=== PATIENT | male | born 1990 ===

== ENCOUNTER → 2019-12-17 | Outpatient (CLI) | payer OTHER ==
[2019-12-17 10:33] VITALS: BP 159/87
--- NOTE | 2019-12-17 10:33 | ER RDC ASSESSMENT REPORT ---
Intake - In the Last 14 days Have you traveled outside [place]?: No Have you been in close contact with someone CONFIRMED: Yes Worked in Healthcare?: No - Symptoms Subjective Fever([place] feverish): No Chills: No Muscule Aches: No Runny Nose: No Sore Throat: No Cough (New or worsening chronic cough): No Shortness of breath: No Nausea or Vomiting: No Headache: No Abdominal Pain: No Diarrhea(3 or more loose stools in last 24 hours): No - Do you have any of the following Chronic lung disease: Asthma or emphysema or COPD: No Cystic Fibrosis: No Diabetes: No High Blood Pressure: No Cardiovascular Disease: No Chronic Kidney Disease: No Chronic Liver Disease: No Chronic blood disorder like Sickle Cell Disease: No Weak immune system due to disease or medication: No Neurologic condition that limits movement: No Developmental delay - Moderate to Severe: No Recent (within past 2 weeks) or current : No Morbid Obesity (>100 pounds over ideal weight): No - Objective Temperature: 98.2 F Pulse Rate: 95 Respiratory Rate: 18 Blood Pressure: 159/87 O2 Sat by Pulse Oximetry: 95 Objective: Patient is a well-appearing 29-year-old male, who presents today for COVID-19 screening. Disposition: Home; Selfcare General - General Stated Complaint: Covid-19 Screening Mode of Arrival: Ambulatory Information source: Patient Notes: The patient was evaluated during the global COVID-19 pandemic. That diagnosis was suspected/considered upon initial presentation. Their evaluation, treatment, and testing was consistent with current guidelines for patients who present with complaints or symptoms that may be related to COVID-19. Patient reports having close contact exposure to a COVID-19 lab confirmed posi tive individual. - HPI Patient complains to provider of: Asymptomatic, no other complaints Onset: Other - Asymptomatic Quality of pain: No pain Severity: None Pain Level: Denies Associated symptoms: None Exacerbated by: Denies Relieved by: Denies Similar symptoms previously: No Recently seen / treated by doctor: No Past Medical History - General Information source: Patient - Social History Smoking Status: Former Smoker Cigarette use (# per day): No - Quit smoking 1 year ago Chew tobacco use (# tins/day): No Smoking Education Provided: Yes Frequency of alcohol use: Occasional Drug Abuse: None Occupation: [employer] employee Lives with: Family Patient has suicidal ideation: No Patient has homicidal ideation: No Physical Exam - General General appearance: Appears well In distress: None Notes: PHYSICAL EXAMINATION: GENERAL: Well-appearing and in no acute distress. HEAD: Atraumatic, normocephalic. EYES: sclera anicteric, conjunctiva are normal. ENT: nares patent. Moist mucous membranes. NECK: Normal range of motion, supple without lymphadenopathy. LUNGS: CTAB and equal. No wheezes rales or rhonchi. HEART: Regular rate and rhythm without murmurs. EXTREMITIES: Normal range of motion, no pitting edema. No cyanosis. BACK: No midline or CVA tenderness. NEUROLOGICAL: Cranial nerves grossly intact. Normal speech. Normal gait. PSYCH: Normal mood, normal affect. SKIN: Warm, Dry, normal color and turgor, no obvious lesions or rash noted. Diagnostic Results Laboratory Results: Patient advised at this time they are considered a Person Under Investigation (PUI) for the COVID-19 Coronavirus. They have been made aware it is currently taking 5-7 days to receive their results, and The [facility] will call to advise them of a POSITIVE result, and an [facility] hourly team members will call to advise of a NEGATIVE result. Patient Education/Counseling Counseling/Education: Patient presents with upper respiratory symptoms worrisome for possible COVID- 19. Patient does not have symptoms worrisome as an emergency such as difficulty breathing, shortness of breath, chest pain, pressure, confusion or cyanosis. Patient appears suitable for discharge. Patient's vital signs are stable and patient is nontoxic in appearance. Good return precautions have been discussed with patient, patient verbalized understanding and is agreeable with discharge plan of care at this time. Patient provided COVID-19 discharge instructions to include: As a person under investigation for COVID-19, the [place] department of Health and Human Services, division of public health advises you to adhere to the following guidance until your test results are reported to you. If your test result is positive, you will receive additional information from your provider and your local health department at that time. Remain at home until you are cleared by the health provider or public health authorities. Keep a log of visitors to your home, notify any visitors to your home of your isolation status. If you plan to move to a new address or leave the [facility], notify the local health department in your County. Call your doctor or seek care if you have an urgent medical need. Before seeking medical care, call ahead to get instructions from the provider before arriving at the medical office clinic or hospital. Notify them that you are being tested for the virus that causes COVID-19 so that arrangements can be made, as necessary, to prevent transmission to others in the healthcare setting. Next, notify the local health department in your county. If a medical emergency arises and you need to call 911, inform dispatch and the first responders that you are being tested for the virus that causes COVID-19. Next, notify the local health department in your county. Patient provided education on smoking cessation and the harmful effects of smoking, especially in the presence of Co-morbid conditions such as Hypertension, Diabetes, and/or other chronic illnesses. Patient verbalized understanding of smoking cessation education, and the increased health benefits of quitting. Guidance for worsening S/SX: For worsening symptoms, patient has been advised to contact their Primary Care Provider, or go to the nearest Emergency Department. RDC Discharge - Discharge Clinical Impression: COVID-19 Screening URI (upper respiratory infection) Qualifiers: URI type: unspecified URI Qualified Code(s): J06.9 - Acute upper respiratory infection, unspecified Condition: Stable Disposition: Home; Selfcare
== END ==
LOC: RDC 09:26
PROVIDERS: ATTEND Nurse Practitioner Family
DX: Z20.828 Contact with and (suspected) exposure to other viral communicable diseases (principal); Z87.891 Personal history of nicotine dependence
CPT/HCPCS: 87635; C9803; 99201

== ENCOUNTER 2020-04-22 15:22 | Emergency (ER) | payer OTHER ==
[2020-04-22] MEDS ORDERED: KETOROLAC TROMETHAMINE INJ/PF 30 MG/1 ML SDV IV ONE (16:49)
--- NOTE | 2020-04-22 16:51 | ER Document Report ---
ED Medical Screen (RME) - General Chief Complaint: Abdominal Pain Stated Complaint: ABDOMINAL PAIN Time Seen by Provider: 04/22/20 16:43 Primary Care Provider: LOPEZ BELLO [Primary Care Provider] - Follow up as needed Notes: HPI: 29-year-old obese male presenting to the emergency department for evaluation of left chest pain and difficulty breathing. Patient was having intercourse with his significant other and felt like he was going to pass out. States this occurred several times. [place] a sharp pain up underneath the left ribs and anterior chest wall. Denies nausea vomiting. PHYSICAL EXAMINATION: There is tenderness along the lower edge of the left anterior lower rib cage region. No specific abdominal pain on palpation. Lung sounds are clear to auscultation regular rate and rhythm appears mildly uncomf ortable I have greeted and performed a rapid initial assessment of this patient. A comprehensive ED assessment and evaluation of the patient, analysis of test results and completion of medical decision making process will be conducted by an additional ED providers. Please note that clinical decision making for this patient was made during the 2019 pandemic of novel coronavirus which caused a significant strain on the healthcare system including at this particular facility. Criteria for admission discharge and level of care decisions as well as treatment decisions have necessarily changed Physical Exam - Vital signs Vitals: Temp Pulse Resp BP Pulse Ox 97.3 F 97 24 H 145/92 H 96 04/22/20 15:50 04/22/20 15:50 04/22/20 15:50 04/22/20 15:50 04/22/20 15:50 Course - Vital Signs Vital signs: Temp Pulse Resp BP Pulse Ox 97.3 F 97 24 H 145/92 H 96 04/22/20 15:50 04/22/20 15:50 04/22/20 15:50 04/22/20 15:50 04/22/20 15:50 Doctor's Discharge - Discharge Referrals: LOPEZ BELLO [Primary Care Provider] - Follow up as needed
[2020-04-22] MEDS ORDERED: KETOROLAC TROMETHAMINE 60 MG/2 ML SDV IM ONE (17:05)
--- NOTE | 2020-04-22 17:37 | RADIOLOGY REPORT (SQ) ---
EXAM DESCRIPTION: CHEST 2 VIEWS IMAGES COMPLETED DATE/TIME: 04/22/2020 5:20 pm REASON FOR STUDY: left ant chest pain COMPARISON: None. NUMBER OF VIEWS: Two view. TECHNIQUE: Frontal and lateral radiographic views of the chest acquired. LIMITATIONS: None. FINDINGS: LUNGS AND PLEURA: Low lung volumes. No opacities, masses or pneumothorax. No pleural eff usion. MEDIASTINUM AND HILAR STRUCTURES: No masses. No contour abnormalities. HEART AND VASCULAR STRUCTURES: Heart normal in size and contour. No evidence for failure. BONES: No acute findings. HARDWARE: None in the chest. OTHER: No other significant finding. IMPRESSION: LOW LUNG VOLUMES. NO SIGNIFICANT RADIOGRAPHIC FINDING IN THE CHEST. TECHNICAL DOCUMENTATION: JOB ID: [id number] 2010 [employer]- All Rights Reserved Reading location - IP/workstation name: [email or web address]
[2020-04-22 17:39] LABS: ABSOLUTE BASOPHILS # (AUTO) 0.1 10^3/uL (0.0-0.2); ABSOLUTE EOSINOPHILS # (AUTO) 0.3 10^3/uL (0.0-0.6); ABSOLUTE LYMPHOCYTES (AUTO) 2.5 10^3/uL (0.5-4.7); ABSOLUTE MONOCYTES (AUTO) 0.8 10^3/uL (0.1-1.4); ABSOLUTE NEUT (AUTO) 4.7 10^3/uL (1.7-8.2); BASOPHILS % (AUTO) 1.1 % (0-2); EOSINOPHILS % (AUTO) 4.1 % (0-6); HEMATOCRIT 41.8 % (37.9-51.0); LYMPHOCYTES % (AUTO) 29.4 % (13-45); MEAN CORPUSCULAR HEMOGLOBIN 27.2 pg (27.0-33.4); MEAN CORPUSCULAR HGB CONC 33.5 g/dL (32.0-36.0); MEAN CORPUSCULAR VOLUME 81 fl (80-97); PLATELET COUNT 374 10^3/uL (150-450); RED BLOOD COUNT 5.15 10^6/uL (4.35-5.55); RED CELL DISTRIBUTION WIDTH 13.7 % (11.5-14.0); SEGMENTED NEUTROPHILS % (AUTO) 55.4 % (42-78); TOTAL CELLS COUNTED % (AUTO) 100 %; WHITE BLOOD COUNT 8.5 10^3/uL (4.0-10.5)
[2020-04-22 17:58] LABS: ALBUMIN 4.3 g/dL (3.5-5.0); ALKALINE PHOSPHATASE 68 U/L (38-126); ASPARTATE AMINO TRANSFERASE 40 U/L (17-59); BILIRUBIN,DIRECT 0.2 mg/dL (0.0-0.4); BILIRUBIN,TOTAL 0.3 mg/dL (0.2-1.3); BLOOD UREA NITROGEN 16 mg/dL (7-20); CALCIUM 9.2 mg/dL (8.4-10.2); CHLORIDE 103 mmol/L (98-107); GLUCOSE 95 mg/dL (75-110); TOTAL PROTEIN 7.7 g/dL (6.3-8.2)
[2020-04-22 18:06] LABS: CARBON DIOXIDE 31 mmol/L (22-30); POTASSIUM 4.8 mmol/L (3.6-5.0)
[2020-04-22 18:10] LABS: ANION GAP 3 (5-19)
--- NOTE | 2020-04-22 19:13 | ER Document Report ---
ED General - General Chief Complaint: Abdominal Pain Stated Complaint: ABDOMINAL PAIN Time Seen by Provider: 04/22/20 16:43 Primary Care Provider: ACE,LOEPZ [Primary Care Provider] - Follow up as needed Mode of Arrival: Ambulatory Information source: Patient Notes: 29-year-old man presents to the emergency department history of left anterior chest wall pain and tenderness which began approximately 2 hours prior to coming to the emergency department. He was having sexual intercourse with his when he developed sudden pain and discomfort. He denies prior history of similar episodes. He states that it hurts to take a deep breath and he also has focal pain right side the left aspect of the sternum. - Related Data Allergies/Adverse Reactions: No Known Allergies Allergy (Unverified 04/22/20 18:54) Past Medical History - Social History Smoking Status: Unknown if Ever Smoked Family History: Reviewed & Not Pertinent Review of Systems - Review of Systems Notes: Constitutional: Negative for fever. HENT: Negative for sore throat. Eyes: Negative for visual changes. Cardiovascular: Negative for chest pain. Chest: + Chest wall pain Respiratory: Negative for shortness of breath. Gastrointestinal: Negative for abdominal pain, vomiting or diarrhea. Genitourinary: Negative for dysuria. Musculoskeletal: Negative for back pain. Skin: Negative for rash. Neurological: Negative for headaches, weakness or numbness. 10 point ROS negative except as marked above and in HPI. Physical Exam - Vital signs Vitals: Temp Pulse Resp BP Pulse Ox 97.3 F 97 24 H 145/92 H 96 04/22/20 15:50 04/22/20 15:50 04/22/20 15:50 04/22/20 15:50 04/22/20 15:50 - Notes Notes: PHYSICAL EXAMINATION: Physical Exam: General: Well-nourished well-developed 29-year-old male with a complaint of chest wall pain HEENT: NC/AT, pupils equal round and reactive to light, MM moist,nares clear, oropharynx clear, airway patent Neck: supple, no adenopathy, no masses. Good range of motion Lungs: clear, good air movement. Chest: Tenderness to palpation on the left lateral distal sternum and costal margin. CVS: Regular rate and rhythm no murmur gallop or rub Abdomen: Soft, active, nontender, no masses, no hepatosplenomegaly Ext: No edema, clubbing or cyanosis. Neuro: Alert and responsive, moving all 4 extremities on command, cranial nerves intact, no focal findings Skin: Intact no open lesions, no rash Course - Re-evaluation Re-evalutation: 04/22/20 20:12 Patient is given Toradol IM for pain with some improvement in his chest discomfort. As read essentially negative there is no pneumothorax and there is no obvious fracture. I explained this to the patient that he probably pulled the sternal costal ligamentous material and is going to be sore and uncomfortable for the next few days. You may use cold pack or warm compress area. Using ibuprofen for pain and follow-up as needed. Patient acknowledges understanding of this plan and is in agreement. - Vital Signs Vital signs: Temp Pulse Resp BP Pulse Ox 97.3 F 97 24 H 145/92 H 96 04/22/20 15:50 04/22/20 15:50 04/22/20 15:50 04/22/20 15:50 04/22/20 15:50 - Laboratory Results Result Diagrams: 04/22/20 17:13 04/22/20 17:13 Laboratory Results Interpreted: 04/22/20 17:13 Sodium 136.7 L Carbon Dioxide 31 H Anion Gap 3 L ALT 51 H Critical Laboratory Results Reviewed: No Critical Results - Radiology Results Radiology Results Interpreted: 04/22/20 20:14 Chest X-Ray 04/22/20 16:48 IMPRESSION: LOW LUNG VOLUMES. NO SIGNIFICANT RADIOGRAPHIC FINDING IN THE CHEST. Critical Radiology Results Reviewed: No Critical Results Discharge - Discharge Clinical Impression: Chest wall pain Condition: Good Disposition: HOME, SELF-CARE Instructions: Chest Wall Pain ([facility]) Additional Instructions: You were seen in the emergency department today with complaint of chest wall pain. This appears to be a musculoskeletal injury and not related to your heart or your lungs. You may use ibuprofen for pain, use a cold compress to the area of pain for the first 48 hours and then you may begin using heat and alternate with cold. If your symptoms are worsening or you have other concerns you may return to the emergency department for further evaluation and treatment HOME CARE INSTRUCTIONS & INFORMATION: Thank you for choosing us for your medical needs. We hope you're satisfied with the care you received. After you leave, you must properly care for your problem and, at the same time, observe its progress. Any condition can change. Some illnesses can change rapidly over hours or days. If your condition worsens, return to the Emergency Department or see your physician promptly. ABOUT YOUR X-RAYS AND EKG'S: If you had an EKG or X-rays taken, they have been read by the Emergency Physician. The X-rays and EKG's will also be read by a Radiologist or Sound Cutter within 24 hours. If discrepancies are noted, you will be notified by telephone. Please be certain the ED has a correct telephone number & address where you can be reached. Also, realize that some fractures or abnormalities do not show up on initial X-rays. If your symptoms continue, see your physician. ABOUT YOUR LABORATORY TEST: If you had laboratory tests, the results have been reviewed by the Emergency Physician. Some test results (for example cultures) may not be available for several days. You will be contacted if any test result shows you need additional treatment. Please be certain the ED has a correct telephone number and address where you can be reached. ABOUT YOUR MEDICATIONS: You will receive instructions on how to take your medicine on the prescription label you receive. Additional information may be provided by the Pharmacy. If you have questions afterwards, call the ED for clarification or further instructions. Some prescribed medications may cause drowsiness. Do not perform tasks such as driving a car or operating machinery without consulting your Pharmacist. If you feel you need a refill of pain medication, your condition will need re-evaluation. Please do not call for a refill of any medication. ABOUT YOUR SIGNATURE: Signature of this document acknowledges to followin. Understanding that you received emergency treatment and that you may be released before al medical problems are known or treated. Please be certain th e ED has a correct phone number & address where you can be reached. 2. Acknowledgement that you will arrange for follow-up care as recommended. 3. Authorization for the Emergency Physician to provide information to your follow-up Physician in order to maximize your care. AT ANY TIME, IF YOUR SYMPTOMS CHANGE SIGNIFICANTLY OR WORSEN OR YOU DEVELOP NEW SYMPTOMS, RETURN TO THE EMERGENCY DEPARTMENT IMMEDIATELY FOR RE-EVALUATION. OUR GOAL IS TO PROVIDE EXCELLENT MEDICAL CARE! WE HOPE THAT WE HAVE MET YOUR EXPECTATIONS DURING YOUR EMERGENCY DEPARTMENT VISIT AND THAT YOU FEEL YOU HAVE RECEIVED EXCELLENT CARE! Prescriptions: Ibuprofen [Motrin 800 mg Tablet] 800 mg PO Q8H PRN #30 tab PRN Reason: Forms: Return to Work Referrals: LOCALMD,NO [Primary Care Provider] - Follow up as needed
[2020-04-22 20:39] VITALS: BP 149/97
--- NOTE | 2020-04-22 22:43 | EKG REPORT ---
SEVERITY:- NORMAL ECG - SINUS RHYTHM : Confirmed by: Lilli Porter 22-Apr-2020 22:42:40
== END 2020-04-22 20:36 | disposition home or self-care (01) ==
LOC: ER 15:22
DX: R07.89 Other chest pain (principal); R06.00 Dyspnea, unspecified
CPT/HCPCS: 93005; 99285; 96372; 36415; 85025; 80053; 84484; 71046; 93010; J1885